=== PATIENT | female | born 1955 | race Caucasian/White ===

== ENCOUNTER 2016-10-10 12:51 | Day surgery (SDC) | payer OTHER ==
[~2016-10-10] VITALS: Ht 170.2 cm; Wt 50.8 kg
[~2016-10-10 12:51] MED LIST: BENADRYL25 MG PO; COREG6.25 M1 PO; LEVEMIR FL100 UNIT/1 SC; LIPITOR10 MG PO; NOVOLOG PE100 UNITS/ SC; RENVELA800 MG PO; ZOLOFT50 MG PO
[2016-10-10 13:28] VITALS: BP 150/84
[2016-10-10 13:39] LABS: EOSINOPHIL (%) 1.2 % (0-5); EOSINOPHIL COUNT 0.1 K/uL (0-0.3); IMMATURE GRANULOCYTE (%) 0.3 % (0.0-0.7); LYMPHOCYTE COUNT 1.3 K/uL (1.0-2.8); MCH 32.5 PG (29.0-34.0); MCHC 32.3 G/DL (30.0-36.0); MCV 100.6 FL (83-99); MEAN PLAT.VOLUME 11.7 uM^3 (9.5-12.4); MONOCYTE COUNT 0.5 K/uL (0-0.8); NEUTROPHIL (%) 80.5 % (45-76); PLATELET COUNT 166 K/uL (156-360); RBC DIS.WIDTH-CV 15.3 % (11.8-14.6); RBC DIS.WIDTH-SD 56.1 % (39-53); RED BLOOD COUNT 3.48 M/uL (3.80-5.20); WHITE BLOOD COUNT 9.9 K/uL (4.1-10.2)
[2016-10-10 14:09] LABS: ANION GAP 14 MEQ/L (2-14); CHLORIDE 101 MEQ/L (99-109); GFR ESTIMATE (CALCULATED) 12 mL/min/; GLUCOSE 162 mg/dL (70-99); SAMPLE HEMOLYSIS CHECK 0; SAMPLE ICTERIC CHECK 0; SAMPLE LIPEMIA CHECK 0; SODIUM 139 MEQ/L (136-147); UREA NITROGEN (BUN) 42 mg/dL (9-23)
[2016-10-10 14:39] LABS: METH RESISTANT S AUREUS PCR NEGATIVE (NEGATIVE)
[2016-10-10 15:49] LABS: PROBE CHECK PASS; SPECIMEN PROCESSING CONTROL PASS
[2016-10-10] MEDS ORDERED: NORCO 5/3251 TABLET PO (16:24)
[2016-10-10 16:41] LABS: POINT-OF-CARE METER ID UU13113675
[2016-10-10 17:00] VITALS: BP 139/67
[2016-10-10 17:23] VITALS: BP 152/67
== END 2016-10-10 17:30 | disposition home or self-care (01) ==
LOC: SDC 12:51
PROVIDERS: Surgery
PROC: 03170JD Bypass Right Brachial Artery to Upper Arm Vein with Synthetic Substitute, Open Approach (ICD-10-PCS; principal; 2016-10-10)
DX: I12.0 Hypertensive chronic kidney disease with stage 5 chronic kidney disease or end stage renal disease (principal); E11.22 Type 2 diabetes mellitus with diabetic chronic kidney disease; N18.6 End stage renal disease; Z99.2 Dependence on renal dialysis; I25.10 Atherosclerotic heart disease of native coronary artery without angina pectoris; D63.1 Anemia in chronic kidney disease; N25.81 Secondary hyperparathyroidism of renal origin; E78.5 Hyperlipidemia, unspecified; Z79.4 Long term (current) use of insulin; F17.200 Nicotine dependence, unspecified, uncomplicated
CPT/HCPCS: 80048; 82948; 85025; 87641; C1768; J0690; J1644; J2250; J2405; J3010

== ENCOUNTER → 2016-12-07 | Outpatient (CLI) | payer OTHER ==
[~2016-12-07] MED LIST changes: +NORCO 5/3251 TABLET PO
== END | disposition home or self-care (01) ==
LOC: AMB 08:57
PROC: 0JPT0XZ Removal of Tunneled Vascular Access Device from Trunk Subcutaneous Tissue and Fascia, Open Approach (ICD-10-PCS; principal; 2016-12-07)
DX: Z49.01 Encounter for fitting and adjustment of extracorporeal dialysis catheter (principal); N18.6 End stage renal disease